=== PATIENT | male | born 1955 | race Caucasian/White ===

== ENCOUNTER 2020-06-25 07:42 | Day surgery (SDC) | payer MEDICARE, OTHER ==
[~2020-06-25] VITALS: Ht 165.1 cm; Wt 77.4 kg
[~2020-06-25 07:42] MED LIST: Aspirin EC81 MG PO; DICL75ER PO; DULO30 PO; GABA100; NAPR500 PO; PANT20 PO; Ranitidine HCl150 M1 PO; SYNOVACIN500 MG PO
== END 2020-06-25 09:58 | disposition home or self-care (01) ==
LOC: ORSCSDS 07:42
PROVIDERS: Internal Medicine Gastroenterology
PROC: 0DJD8ZZ Inspection of Lower Intestinal Tract, Via Natural or Artificial Opening Endoscopic (ICD-10-PCS; principal; 2020-06-25 09:00)
DX: K62.5 Hemorrhage of anus and rectum (principal); K57.30 Diverticulosis of large intestine without perforation or abscess without bleeding; Z87.891 Personal history of nicotine dependence; Z79.82 Long term (current) use of aspirin; Z79.899 Other long term (current) drug therapy
CPT/HCPCS: J2704; J7120

== ENCOUNTER → 2021-11-12 | Outpatient (CLI) | payer MEDICARE, OTHER ==
[2021-11-13 10:17] LABS: BASOPHILS ABSOLUTE AUTO 0.09 K/mm3 (0.00-0.23); BASOPHILS PERCENT AUTO 1 % (0-2); EOSINOPHILS ABSOLUTE AUTO 0.34 K/mm3 (0.00-0.68); EOSINOPHILS PERCENT AUTO 3 % (0-6); Hematocrit 43.3 % (37.0-53.0); Hemoglobin 14.1 g/dL (13.5-17.5); IMMATURE GRAN ABSOLUTE AUTO 0.03 K/mm3 (0.00-0.10); IMMATURE GRAN PERCENT AUTO 0 % (0-1); LYMPHOCYTES PERCENT AUTO 13 % (21-46); MONOCYTES PERCENT AUTO 10 % (4-13); Mean Corpuscular HGB 31.3 pg (26.0-34.0); Mean Corpuscular HGB Conc 32.6 g/dL (31.5-36.5); Mean Corpuscular Volume 96 fL (80-100); NEUTROPHILS ABSOLUTE AUTO 7.47 K/mm3 (1.96-9.15); NEUTROPHILS PERCENT AUTO 73 % (41-73); Platelet Count 335 K/mm3 (150-400); RDW Coefficient Variation 12.1 % (11.7-14.2); White Blood Cell Count 10.23 K/mm3 (4.00-11.30)
[2021-11-13 10:30] LABS: Prothrombin Time Results 10.5 Sec (9.7-11.5)
[2021-11-13 11:39] LABS: Albumin/Globulin Ratio 1.2 (0.8-1.8); Bilirubin, Total 0.4 mg/dL (0.1-1.0); Bun/Creatinine Ratio 15.3 (12.0-20.0); Calcium, Blood 9.1 mg/dL (8.5-10.1); Creatinine, Blood 0.78 mg/dL (0.60-1.20); Globulin, Blood 3.3 g/dL (2.2-4.0); Phosphorus, Blood 3.5 mg/dL (2.5-4.9); Potassium, Blood 5.2 mmol/L (3.5-5.5); Total Protein, Blood 7.3 g/dL (6.4-8.2)
[2021-11-13 12:06] LABS: Carcinoembryonic Antigen 767.9 ng/mL (0.0-3.0)
[2021-11-13 12:34] LABS: Cancer Antigen 19-9 4207.9 U/mL (2.0-37.0)
== END | disposition home or self-care (01) ==
LOC: LAB SHORT 16:35
PROVIDERS: Internal Medicine Hematology & Oncology
DX: C25.9 Malignant neoplasm of pancreas, unspecified (principal); K86.89 Other specified diseases of pancreas; R74.8 Abnormal levels of other serum enzymes; R10.84 Generalized abdominal pain; R93.5 Abnormal findings on diagnostic imaging of other abdominal regions, including retroperitoneum
CPT/HCPCS: 80053; 82378; 84100; 85025; 85610; 86301

== ENCOUNTER → 2021-12-10 | Outpatient (CLI) | payer MEDICARE, OTHER ==
[~2021-12-10] MED LIST changes: +ONDA4 PO; +OXYC10ER PO; +PROM25 PO
[2021-12-10 13:09] LABS: Albumin, Blood 2.8 g/dL (3.4-5.0); Albumin/Globulin Ratio 0.9 (0.8-1.8); Bun/Creatinine Ratio 24.1 (12.0-20.0); Calcium, Blood 8.9 mg/dL (8.5-10.1); Creatinine, Blood 0.75 mg/dL (0.60-1.20); Globulin, Blood 3.1 g/dL (2.2-4.0); Phosphorus, Blood 4.4 mg/dL (2.5-4.9); Potassium, Blood 5.1 mmol/L (3.5-5.5); Total Protein, Blood 5.9 g/dL (6.4-8.2)
== END | disposition home or self-care (01) ==
LOC: LAB 08:59 → LAB SHORT 08:59
PROVIDERS: Internal Medicine Hematology & Oncology
DX: K86.89 Other specified diseases of pancreas (principal); R93.5 Abnormal findings on diagnostic imaging of other abdominal regions, including retroperitoneum; R74.8 Abnormal levels of other serum enzymes; R10.84 Generalized abdominal pain
CPT/HCPCS: 80053; 84100; 86301

== ENCOUNTER 2021-12-21 08:06 | Day surgery (SDC) | payer MEDICARE, OTHER ==
[~2021-12-21] VITALS: Ht 165.1 cm; Wt 73.4 kg
[~2021-12-21 08:06] MED LIST changes: -ONDA4 PO; -OXYC10ER PO; -PROM25 PO
[2021-12-21] MEDS ORDERED: Ranitidine HCl150 M1 PO (08:28)
[2021-12-21] MEDS ORDERED: PROM25 PO (08:29)
[2021-12-21] MEDS ORDERED: ONDA4 PO (08:29)
[2021-12-21] MEDS ORDERED: OXYC10ER PO (08:30)
--- NOTE | 2021-12-21 08:58 | NUR ---
History, Chart, Medications and Allergies reviewed before start of procedure. Patient confirms NPO status and agrees with scheduled surgery. Lungs clear T/O to Auscultation. Patient States Post-Procedure ride home has been arranged with his , who is at bedside at this time.
--- NOTE | 2021-12-21 11:27 | NUR ---
WRITTEN AND VERBAL D/C INSTUCTIONS GIVEN TO PT AND WITH STATED UNDERSTANDING. TOLERATING DRINK. DENIES C/O PAIN. NO CHANGE IN SURGICAL SITE. CLEAN, DRY AND INTACT.
== END 2021-12-21 23:33 | disposition home or self-care (01) ==
LOC: ORSCMMR 08:06 → ORD 11:00 → ORSCMMR 23:33
PROVIDERS: Surgery
PROC: B543ZZA Ultrasonography of Right Jugular Veins, Guidance (ICD-10-PCS; principal; 2021-12-21 09:30)
PROC: 05HM33Z Insertion of Infusion Device into Right Internal Jugular Vein, Percutaneous Approach (ICD-10-PCS; principal; 2021-12-21 09:30)
DX: C25.9 Malignant neoplasm of pancreas, unspecified (principal); K21.9 Gastro-esophageal reflux disease without esophagitis; Z87.891 Personal history of nicotine dependence; Z79.899 Other long term (current) drug therapy; Z79.82 Long term (current) use of aspirin
CPT/HCPCS: 77001; C1788; J1100; J1642; J2001; J2250; J2405; J2704; J2765; J3010; J7120

== ENCOUNTER → 2021-12-23 | Outpatient (CLI) | payer MEDICARE, OTHER ==
[~2021-12-23] MED LIST changes: +ONDA4 PO; +OXYC10ER PO; +PROM25 PO
[2021-12-23 13:25] LABS: International Normalized Ratio 1.07; Prothrombin Time Results 11.2 Sec (9.7-11.5)
[2021-12-23 13:28] LABS: Albumin, Blood 2.7 g/dL (3.4-5.0); Bilirubin, Total 0.7 mg/dL (0.1-1.0); Bun/Creatinine Ratio 18.9 (12.0-20.0); Creatinine, Blood 0.8 mg/dL (0.60-1.20); Globulin, Blood 2.8 g/dL (2.2-4.0); Phosphorus, Blood 3.4 mg/dL (2.5-4.9); Potassium, Blood 4.1 mmol/L (3.5-5.5); Total Protein, Blood 5.5 g/dL (6.4-8.2)
[2021-12-26 20:07] LABS: APTT 27.2 sec (22.9-30.2)
== END | disposition home or self-care (01) ==
LOC: LAB SHORT 09:05 → LAB 09:05
PROVIDERS: Internal Medicine Hematology & Oncology
DX: Z79.01 Long term (current) use of anticoagulants (principal); Z51.81 Encounter for therapeutic drug level monitoring; C25.9 Malignant neoplasm of pancreas, unspecified; K86.89 Other specified diseases of pancreas; R93.5 Abnormal findings on diagnostic imaging of other abdominal regions, including retroperitoneum
CPT/HCPCS: 80053; 84100; 85610; 85730; 85732; 86301

== ENCOUNTER → 2022-01-06 | Outpatient (CLI) | payer MEDICARE, OTHER ==
[~2022-01-06] MED LIST changes: +PROC25S PO
[2022-01-06 16:56] LABS: Albumin, Blood 2.6 g/dL (3.4-5.0); Albumin/Globulin Ratio 0.9 (0.8-1.8); Bilirubin, Total 0.9 mg/dL (0.1-1.0); Bun/Creatinine Ratio 28.6 (12.0-20.0); Creatinine, Blood 0.6 mg/dL (0.60-1.20); Globulin, Blood 2.8 g/dL (2.2-4.0); Phosphorus, Blood 2.7 mg/dL (2.5-4.9); Total Protein, Blood 5.4 g/dL (6.4-8.2)
[2022-01-06 18:28] LABS: Potassium, Blood 4.8 mmol/L (3.5-5.5)
== END ==
LOC: LAB SHORT 09:30 → LAB 09:30
PROVIDERS: Internal Medicine Hematology & Oncology
DX: R93.5 Abnormal findings on diagnostic imaging of other abdominal regions, including retroperitoneum (principal); C25.9 Malignant neoplasm of pancreas, unspecified; K86.89 Other specified diseases of pancreas
CPT/HCPCS: 80053; 84100; 86301

== ENCOUNTER 2022-01-17 21:50 | Inpatient (IN) | payer MEDICARE, OTHER ==
[~2022-01-17] VITALS: Ht 165.1 cm; Wt 63.9 kg
[~2022-01-17 21:50] MED LIST changes: -PROC25S PO
[2022-01-17] MEDS ORDERED: PROC25S PO (22:30)
[2022-01-17 23:31] LABS: BASOPHILS ABSOLUTE AUTO 0.01 K/mm3 (0.00-0.23); BASOPHILS PERCENT AUTO 0 % (0-2); EOSINOPHILS ABSOLUTE AUTO 0.02 K/mm3 (0.00-0.68); EOSINOPHILS PERCENT AUTO 0 % (0-6); Hematocrit 24.6 % (37.0-53.0); Hemoglobin 8.2 g/dL (13.5-17.5); IMMATURE GRAN ABSOLUTE AUTO 0.05 K/mm3 (0.00-0.10); IMMATURE GRAN PERCENT AUTO 1 % (0-1); LYMPHOCYTES ABSOLUTE AUTO 0.85 K/mm3 (0.84-5.20); LYMPHOCYTES PERCENT AUTO 11 % (21-46); MONOCYTES ABSOLUTE AUTO 1.12 K/mm3 (0.16-1.47); MONOCYTES PERCENT AUTO 15 % (4-13); Mean Corpuscular HGB 28.7 pg (26.0-34.0); Mean Corpuscular HGB Conc 33.3 g/dL (31.5-36.5); Mean Corpuscular Volume 86 fL (80-100); Mean Platelet Volume 9.3 fL (9.1-12.4); NEUTROPHILS ABSOLUTE AUTO 5.67 K/mm3 (1.96-9.15); NEUTROPHILS PERCENT AUTO 74 % (41-73); Platelet Count 513 K/mm3 (150-400); RDW Coefficient Variation 17.8 % (11.7-14.2); RDW Standard Deviation 53.1 fL (35.1-46.3); Red Blood Cell Count 2.86 M/mm3 (4.30-5.90); White Blood Cell Count 7.72 K/mm3 (4.00-11.30)
[2022-01-17 23:51] LABS: Albumin, Blood 2.2 g/dL (3.4-5.0); Albumin/Globulin Ratio 0.7 (0.8-1.8); Bilirubin, Total 0.5 mg/dL (0.1-1.0); Bun/Creatinine Ratio 51.7 (12.0-20.0); Calcium, Blood 8.5 mg/dL (8.5-10.1); Creatinine, Blood 0.6 mg/dL (0.60-1.20); Potassium, Blood 3.8 mmol/L (3.5-5.5); Total Protein, Blood 5.2 g/dL (6.4-8.2)
[2022-01-18 05:50] LABS: BASOPHILS ABSOLUTE AUTO 0.01 K/mm3 (0.00-0.23); BASOPHILS PERCENT AUTO 0 % (0-2); EOSINOPHILS ABSOLUTE AUTO 0.17 K/mm3 (0.00-0.68); EOSINOPHILS PERCENT AUTO 3 % (0-6); Hematocrit 22.5 % (37.0-53.0); Hemoglobin 7.3 g/dL (13.5-17.5); IMMATURE GRAN ABSOLUTE AUTO 0.03 K/mm3 (0.00-0.10); IMMATURE GRAN PERCENT AUTO 1 % (0-1); LYMPHOCYTES ABSOLUTE AUTO 1.05 K/mm3 (0.84-5.20); LYMPHOCYTES PERCENT AUTO 19 % (21-46); MONOCYTES ABSOLUTE AUTO 0.94 K/mm3 (0.16-1.47); MONOCYTES PERCENT AUTO 17 % (4-13); Mean Corpuscular HGB 28.3 pg (26.0-34.0); Mean Corpuscular HGB Conc 32.4 g/dL (31.5-36.5); Mean Corpuscular Volume 87 fL (80-100); Mean Platelet Volume 9.4 fL (9.1-12.4); NEUTROPHILS ABSOLUTE AUTO 3.42 K/mm3 (1.96-9.15); NEUTROPHILS PERCENT AUTO 61 % (41-73); Platelet Count 389 K/mm3 (150-400); RDW Coefficient Variation 17.9 % (11.7-14.2); RDW Standard Deviation 55.3 fL (35.1-46.3); Red Blood Cell Count 2.58 M/mm3 (4.30-5.90); White Blood Cell Count 5.62 K/mm3 (4.00-11.30)
--- NOTE | 2022-01-18 05:55 | NUR ---
SUMMARY PT ARRIVED TO ROOM WITH SOME NAUSEA. PT NG TUBE HOOKED TO WALL SUCTIO@ LIS. DARK COFFEE GROUND EMESIS NOTED IN TUBING. PT ALSO TX PER EMAR FOR NAUSEA WITH RELIEF. PT DENIES PAIN. PT CURRENTLY RESTING AND BREATHING EASY. CALL LIGHT IN REACH.
[2022-01-18 06:32] LABS: Albumin, Blood 2.1 g/dL (3.4-5.0); Albumin/Globulin Ratio 0.8 (0.8-1.8); Bilirubin, Total 0.5 mg/dL (0.1-1.0); Bun/Creatinine Ratio 49.5 (12.0-20.0); Calcium, Blood 8.1 mg/dL (8.5-10.1); Creatinine, Blood 0.55 mg/dL (0.60-1.20); Globulin, Blood 2.8 g/dL (2.2-4.0); Potassium, Blood 3.5 mmol/L (3.5-5.5); Total Protein, Blood 4.9 g/dL (6.4-8.2)
--- NOTE | 2022-01-18 10:52 | NUR ---
DR BULLARD IN TO SEE PT. PROVIDED ICE CHIPS AND CEPACOL LOZENGES PER DR BULLARD'S ORDERS. DAUGHTER AT BEDSIDE. CALL LIGHT IN REACH.
[2022-01-18 13:10] LABS: Hematocrit 21.3 % (37.0-53.0); Hemoglobin 7.1 g/dL (13.5-17.5)
--- NOTE | 2022-01-18 17:56 | NUR ---
SUMMARY NO ACUTE CHANGES T/O SHIFT. PT MEDICATED PER ORDERS FOR BACK PAIN. MEDICATED ONCE DURING SHIFT FOR ANXIETY. IV FLUIDS/PROTONIX DRIP INFUSING PER ORDERS. NG PUTTING OUT SMALL AMOUNT DARK BROWN/COFFEE GROUND DRAINAGE TO LIS. PT TOLERATING SMALL AMOUNTS ICE CHIPS. FAMILY AT BEDSIDE. CALL LIGHT IN REACH.
[2022-01-18 18:23] LABS: Hematocrit 20.4 % (37.0-53.0); Hemoglobin 6.7 g/dL (13.5-17.5)
--- NOTE | 2022-01-18 18:43 | NUR ---
H&H .09/30. CALLED DR SCHAEFER; ORDERS OBTAINED TO ADMINISTER 1 UNIT PRBCS. PT AGREEABLE TO PLAN, SIGNED BLOOD CONSENT.
[2022-01-19 03:41] LABS: Hematocrit 25.1 % (37.0-53.0)
--- NOTE | 2022-01-19 08:06 | NUR ---
SUMMARY PT RECEIVED 1 UNIT PRBCS TONIGHT, PT ALSO RECEIVED SUBLIMAZE AND ATIVAN WAKING FREQUENTLY DUE TO VS WTH BLOOD AND IV CHECKS ETC, I CALLED DR ELIAS THIS AM 0306 DOSE OF SUBLIMAZE WAS INEFFECTIVE WITH PT RATING SAME LEVEL 6 AFTER DOSE BEFORE DOSE. I PLACED EGGCRATE WITH NO CHANGE.I DISCUSSED PTS HX WITH DR ELIAS AND SHE ORDERED 1 ADDITIONAL DOSE OF SUBLIMAZE 50 MCG WHICH WAS GIVEN AND PT SLEPT AFTER.
--- NOTE | 2022-01-19 13:44 | NUR ---
WENT TO COMMERCIAL CORRESPONDENT PATIENT FROM HIS ROOM FOR PROCEDURE AND HE WAS DRINKING ICE WATER. PATIENT WAS TOLD HE HAD NOT BEEN INSTRUCTED TO WITH HOLD LIQUIDS SINCE HE HAS AN NG TUBE IN AND INTERMITTENT SUCTION RUNNING. PT ADMITS TO DRINKING CLEAR FLUIDS ALL DAY, HAS NOT HAD ANY FOOD BY MOUTH ON 01/19/22. PT'S LAST DRINK OF WATER WAS AT 1250. PROCEDURE ON HOLD FOR 2 HOURS POLICY SAYS WE CANNOT MOVE FORWARD WITH EGD UNTIL SUCH TIME HAS PASSED.
--- NOTE | 2022-01-19 14:49 | NUR ---
PT TO PROCEDURE W/DR RICHMOND.
--- NOTE | 2022-01-19 16:25 | NUR ---
01/19/22 1625 Luis Harris HISTORY, CHART, MEDICATIONS AND ALLERGIES REVIEWED BEFORE START OF PROCEDURE. PATIENT CONFIRMS NPO STATUS AND AGREES WITH SCHEDULED PROCEDURE. 3-LEAD EKG REVIEWED WITH PHYSICIAN PRIOR TO START OF PROCEDURE. MONITOR INTACT WITH CONTINUOUS PULSE OXIMETRY,CAPNOGRAPHY, 3-LEAD EKG, INTERMITTENT BP. SUPPLEMENTAL O2 TO BE TITRATED THROUGHOUT PROCEDURE TO MAINTAIN O2 SATURATION ABOVE 90%. PATIENT DETERMINED TO BE ASA APPROPRIATE FOR PROPOFOL SEDATION PRIOR TO START OF PROCEDURE BY DR. RICHMOND
--- NOTE | 2022-01-19 17:03 | NUR ---
SONU CONF WITH RN, REPORTS PT IS IN THE OR RIGHT NOW, BUT FAMILY (DTR AND SPOUSE) IN ROOM. RN REPORTS RECENT MEDICATION ORDER FOR ATIVAN AND DILAUDID. PT MUCH MORE CONF WITH NEW MEDICATIONS. LOTS OF FAMILY INVOLVED AND SUPPORT. PT WAS NOT IN THE ROOM, MET WITH DTR AND SPOUSE. THEY ARE APPRO, HAVE A GOOD UNDERATNDING OF PT PROGNOSIS/DIAGNOSIS AND NEXT STEPS AFTER PROCEDURE THIS AFTERNOON AND AFTER DC. ANSWERED QUESTIONS ABOUT HOSPICE, TEAM APPROACH AND HOSPICE CRITERIA. SPOUSE, SHERYL REPORTS THEY PLAN ON GOING ON HOSPICE AFTER DC, WOULD LIKE A SAME DAY ADMISSION. [facility] IS FIRST CHOICE, BUT DO NOT WANT TO WAIT SEVERAL DAYS FOR ADMISSION AND WILL GO WITH [facility] THE EARLIEST ADMISSION AVAILABITY. WILL RELAY TO COMPLAINT EVALUATION SUPERVISOR. SHERYL REPORTS THAT HER DTR IS A NURSE HERE AT [facility] IN [place] AND IS VERY SUPPORTIVE AND HAS BEEN HELPING WITH THE CARE OF HER . SHE IS DOING HER BEST TO GET REST AND TAKE CARE OF HERSELF. DTR REPORTS THEY HAVE BEEN WORKING ON ADV DIRECTIVE AND A WILL. HAS QUESTIONS ABOUT A NOTARY AND WITNESSES FOR THESE DOCUMENTS. ADVISED HER THAT PALLIATIVE CARE CAN HELP WITH THIS. ALL QUESTIONS ANSWERED, ADVISED I WILL FOLLOW UP WITH THEM AGAIN TOMORROW WHEN IT IS CLEAR WHAT IS THE NEXT PLAN OF ACTION FOR THE PT AND THE ASSSIT WITH DOCUMENTS NEEDED. PALLIATIVE [facility]ARE WILL CONTINUE TO MONITOR AND OFFER SUPPORT.
--- NOTE | 2022-01-19 17:08 | NUR ---
PT ARRIVED BACK TO UNIT FROM EGD. VSS. FAMILY AT BEDSIDE. DR RICHMOND IN TO SEE PT/FAMILY. PT MAY HAVE CLEAR LIQUIDS, ORDERS OBTAINED. CALL LIGHT IN REACH.
--- NOTE | 2022-01-19 17:44 | NUR ---
SUMMARY PT S/P EGD THIS AFTERNOON. VSS. NG TUBE REMOVED FOR SCOPE. ORDERS FOR CLEAR LIQUIDS. IV FLUIDS INFUSING PER ORDERS. DR RICHMOND IN TO MEET WITH PT AND FAMILY AFTER SCOPE. ADVISED SPOKE TO DR BULLARD. PLAN TO START PROCESS OF TRANSFERRING PT TO HIGHER LEVEL OF CARE TOMORROW FOR POSSIBLE STENT PLACEMENT. MEDICATED PT FOR PAIN AND ANXIETY PER ORDERS. PT DROWSY BUT WAKES TO VOICE. CALL LIGHT IN REACH. FAMILY BEDSIDE.
--- NOTE | 2022-01-20 04:18 | NUR ---
SHIFT SUMMARY NO ACUTE EVENTS THIS SHIFT. PATIENT ABLE TO TOLERATE SMALL SIPS OF CL, DENIES N/V. ABULATES TO BATHROOM WITH SBA, VOIDS EASILY, PASSING GAS. NO BM. REPORTS PAIN IN BACK, MEDICATED PER EMAR WITH RELIEF.VSS, ABLE TO REST THIS SHIFT. CALLS APROPRIATELY CALL LIGHT IN REACH.
--- NOTE | 2022-01-20 08:03 | NUR ---
TRANSFER REQUEST FOR TRANSPYLORIC STENT [facility] ([facility] ) NO BEDS AVAILABLE / NO WAIT LIST [facility] ([facility]) NO BEDS AVAILABLE / NO WAIT LIST [facility] ( [place] ) NO BEDS AVAILABLE / NO WAIT LIST [facility] NO BEDS AVAILABLE / NO WAIT LIST [facility] ( [facility]) ON [facility] FOR ALL ADULT BEDS / NO WAIT LIST
[2022-01-20] MEDS ORDERED: HYDMOR2 IV (11:32)
[2022-01-20] MEDS ORDERED: DEXT30SU MT (11:36)
[2022-01-20] MEDS ORDERED: MORP20L SL (11:38)
[2022-01-20] MEDS ORDERED: TRANSDERM-SCOP1 EA10 TD (11:38)
--- NOTE | 2022-01-20 12:07 | NUR ---
DISCHARGE NOTE: PATIENT AND PATIENTS FAMILY MEMEBERS WERE EDUCATED ON DISCHARGE INSTRUCTIONS. PATIENT AND FAMILY VERBALIZED UNDERSTANDING OF INSTRUCTIONS AND HAD NO FURTHER QUESTIONS. HARD PERSCRIPTION WAS GIVEN TO THE WHICH SHE PUT IN HER PURSE. HIS MEDIPORT STILL HAS THE IV PLACED AND IS SALINE LOCKED SINCE HOSPICE WILL BE NEEDING ACCESS. HE IS TOLERATING HIS CLEAR LIQUIDS AND IS VOIDING/PASSING GAS. HE IS A SBA TO THE BATHROOM AND TO BED. HIS OTHER PERSCRIPTION WAS FAXED TO HIS PREFERRED PHARMACY WHICH IS [facility]. HE IS DRESSED AND HAS ITEMS IN THE ROOM GATHERED. FAMILY IS GOING TO WHEELCHAIR HIM OUT TO THE [facility] CAR TO BE TAKEN HOME. HE WAS A YAIR PATIENT TO TAKE CARE OF.
== END 2022-01-20 12:15 | disposition hospice, home (50) | DRG 380 ==
LOC: ER 21:50 → SURS 01-18 04:02
PROVIDERS: Emergency Medicine; Internal Medicine Gastroenterology; ADMIT Internal Medicine
PROC: 30233N1 Transfusion of Nonautologous Red Blood Cells into Peripheral Vein, Percutaneous Approach (ICD-10-PCS; 2022-01-17)
PROC: 0DH67UZ Insertion of Feeding Device into Stomach, Via Natural or Artificial Opening (ICD-10-PCS; 2022-01-18)
PROC: 0D778ZZ Dilation of Stomach, Pylorus, Via Natural or Artificial Opening Endoscopic (ICD-10-PCS; principal; 2022-01-19 14:30)
DX: K31.1 Adult hypertrophic pyloric stenosis (principal); K22.11 Ulcer of esophagus with bleeding; C25.9 Malignant neoplasm of pancreas, unspecified; C78.6 Secondary malignant neoplasm of retroperitoneum and peritoneum; C79.82 Secondary malignant neoplasm of genital organs; R64 Cachexia; C78.7 Secondary malignant neoplasm of liver and intrahepatic bile duct; Z51.5 Encounter for palliative care; D63.8 Anemia in other chronic diseases classified elsewhere; Z66 Do not resuscitate; F32.A Depression, unspecified; K21.9 Gastro-esophageal reflux disease without esophagitis; Z92.21 Personal history of antineoplastic chemotherapy; Z88.0 Allergy status to penicillin; Z79.899 Other long term (current) drug therapy; Z79.82 Long term (current) use of aspirin; Z79.891 Long term (current) use of opiate analgesic; Z68.25 Body mass index [BMI] 25.0-25.9, adult; Z95.828 Presence of other vascular implants and grafts; Z98.890 Other specified postprocedural states
CPT/HCPCS: 36430; 71045; 74177; 80053; 83690; 84484; 85014; 85018; 85025; 86850; 86900; 86901; 86923; 93005; 93010; 96374-59; 96375; 99285-25; A9270; C1726; C9113; J0780; J1170; J1642; J2060; J2405; J2704; J3010; J7030; J7120; P9016; Q9967